=== PATIENT | female | born 1930 | race Hispanic/Latino ===

== ENCOUNTER 2019-11-16 18:07 | Inpatient (IN) | payer MEDICARE, MEDICAID ==
[~2019-11-16] VITALS: Ht 157.5 cm; Wt 59.2 kg
--- NOTE | 2019-11-16 18:26 | NUR ---
PT ARRIVED TO UNIT VIA WHEELCHAIR WITH STAFF AND DAUGHTER; ALERT AND ORIENTED X 2; [place] SPEAKING ONLY. STABLE CONDITION. PT STOOD AND SAT ON BED INDEPENDENTLY. DENIES PAIN. RESPIRATIONS EVEN AND UNLABORED ON ROOM AIR. CONNECTED TO ATTACHMENTS. ASSESSMENT COMPLETED. ORIENTED TO ROOM AND CALL LIGHT SYSTEM. IV SITE STARTED TO LAC AND LABS OBTAINED. PLAN OF CARE DISCUSSED. PT ENCOURAGED TO VERBALIZE CONCERNS. STATES UNDERSTANDING. SAFETY MEASURES IN PLACE. CALL LIGHT WITHIN REACH.
--- NOTE | 2019-11-16 19:05 | NUR ---
RADIOLOGY AT BEDSIDE FOR CXR.
[2019-11-16] MEDS ORDERED: SYMBICORT1 AE1 IN (19:07)
[2019-11-16] MEDS ORDERED: METFORMIN HCL500 M1 PO (19:07)
[2019-11-16] MEDS ORDERED: LEVOTHYROXIN150 MC1 PO (19:07)
[2019-11-16] MEDS ORDERED: LOSARTAN POTAS100 MG PO (19:08)
[2019-11-16 19:14] LABS: HEMATOCRIT 31.6 % (37.0-47.0); HEMOGLOBIN 10.1 g/dl (12.0-16.0); IMMATURE GRANULOCYTES 1.9 % (0.0-5.0); MEAN CELL VOLUME 103.6 fL CALC (80.0-100.0); MEAN CORPUSCULAR HGB 33.1 pG CALC (26.0-32.0); NEUT# 8.2 thou/uL (2.00-7.15); RED BLOOD COUNT 3.05 mill/uL (4.20-5.60); RED CELL DISTRI WIDTH 13.2 % (11.5-15.5)
[2019-11-16] MEDS ORDERED: LATANOPROST0.005 % OU (19:14)
[2019-11-16] MEDS ORDERED: CEPHALEXIN500 MG PO (19:15)
[2019-11-16] MEDS ORDERED: PROAIR HFA108 MCG/AC IN (19:15)
[2019-11-16] MEDS ORDERED: LASIX 40 MG TAB40 MG PO (19:15)
[2019-11-16] MEDS ORDERED: PRAVASTATIN SOD20 MG PO (19:16)
[2019-11-16] MEDS ORDERED: VITAMIN B-12500 MCG PO (19:16)
[2019-11-16] MEDS ORDERED: TESSALON PER100 MG PO (19:17)
--- NOTE | 2019-11-16 19:25 | NUR ---
rt @ bedside. ekg obtained.
[2019-11-16 19:27] LABS: ALBUMIN 3.9 g/dL (3.2-5.0); BILIRUBIN, TOTAL 0.7 mg/dL (0.0-1.4); CREATININE 2.2 mg/dL (0.5-1.0); POTASSIUM 4.4 mmol/l (3.5-5.1); TOTAL PROTEIN 6.4 g/dL (6.3-8.2)
[2019-11-16 19:45] VITALS: BP 94/55
--- NOTE | 2019-11-16 19:45 | NUR ---
awake. rolf(gr celestina) @ bedside & translates for this adjusto writer operator. denies distress. cardiac exercise specialist shows sinus rhythm pacs pvcs hr 92. #20 lac saline lock. po fluids given. fall precautions cont.
--- NOTE | 2019-11-16 20:10 | NUR ---
rt notified of need for ekg.
--- NOTE | 2019-11-16 20:40 | NUR ---
up to bsc. voided. urine spec sent to lab. carmen well.
[2019-11-16 21:42] LABS: URINE BILIRUBIN - DIPSTICK NEGATIVE (NEGATIVE); URINE BLOOD DIPSTICK NEGATIVE (NEGATIVE); URINE COLOR YELLOW; URINE GLUCOSE - DIPSTICK NEGATIVE (NEGATIVE); URINE KETONE TRACE mg/dL (NEGATIVE); URINE LEUK ESTERASE TRACE (NEGATIVE); URINE NITRITE - DIPSTICK NEGATIVE (Negative); URINE PROTEIN - DIPSTICK NEGATIVE (NEG-TRACE); URINE SPECIFIC GRAVITY 1.025; URINE UROBILINOGEN - DIPSTICK 0.2 E.U./dL (0.2)
[2019-11-17] VITALS (7 sets, daily range): BP systolic 90–119; BP diastolic 51–60
--- NOTE | 2019-11-17 00:01 | NUR ---
eyes closed. no distress. cardic monitor shows sinus rhythm pacs pvcs hr 94.
--- NOTE | 2019-11-17 04:00 | NUR ---
eyes closed. no distress. traffic monitor specialist shows sinus rhythm hr 88.
[2019-11-17 06:11] LABS: CREATININE 1.6 mg/dL (0.5-1.0); POTASSIUM 4.7 mmol/l (3.5-5.1)
--- NOTE | 2019-11-17 07:20 | NUR ---
PT RESTING IN BED AWAKE. PT IS ALERT AND ORIENTED X3. SHIFT ASSESSMENT COMPLETED AT THIS TIME. IV PATENT X1. CALL LIGHT IN REACH. WILL CONTINUE TO MONITOR
--- NOTE | 2019-11-17 07:50 | NUR ---
DR CHRISTNIA AT BEDSIDE AT THIS TIME.
--- NOTE | 2019-11-17 07:50 | NUR ---
PT SET UP FOR AM MEAL
--- NOTE | 2019-11-17 10:04 | NUR ---
PT TO RADIOLOGY VIA WHEELCHAIR
--- NOTE | 2019-11-17 10:18 | NUR ---
PT RETURNED FROM RADIOLOGY VIA WHEELCHAIR IN STABLE CONDITION
--- NOTE | 2019-11-17 11:40 | NUR ---
PT SET UP FOR NOON MEAL.
--- NOTE | 2019-11-17 12:18 | NUR ---
PT RESTING IN BED AWAKE. MULTIPLE FAMILY MEMBERS AT BEDSIDE. RESP ARE EVEN AND UNLABORED. NO DISTRESS NOTED CALL LIGHT IN REACH. WILL CONTINUE TO MONITOR.
--- NOTE | 2019-11-17 13:48 | NUR ---
REPORT TO Santa MIMS LPN.
--- NOTE | 2019-11-17 14:03 | NUR ---
[facility] ROOM 261 VIA WHEELCHAIR.
--- NOTE | 2019-11-17 14:10 | NUR ---
PT TRANSFERRED FROM ICU VIA [facility] STAFF AND BELONGINGS FAMILY ACCOMPANIED PT.
--- NOTE | 2019-11-17 16:01 | NUR ---
PT C/O COUGHING FAMILY INQUIRED ABOUT COUGH MEDICATIONS. INQUIRED WITH ARMAND MEMBRENO WILL ORDER SOMETHING.
--- NOTE | 2019-11-17 19:18 | NUR ---
REPORT GIVEN BY ANDI SHEFFIELD. PATIENT IN BED WITH DAUGHTER PRESENT AT THE BEDSIDE. RESP EVEN AND UNLABORED. NO S/S OF DISTRESS NOTED. IV INFUSING NS. PLAN OF CARE DISCUSSED. PATIENT INFORMED TO CALL WITH ANY QUESTIONS OR CONCERNS. FALL PRECAUTIONS IN PLACE.
--- NOTE | 2019-11-17 20:16 | NUR ---
DAUGHTER GIVEN A COT TO SLEEP ON IN THE ROOM. PATIENT REQUESTED BEDTIME MEDICATIONS EARLY.
--- NOTE | 2019-11-18 00:03 | NUR ---
PATIENT RESTING WITH EYES CLOSED. RESP EVEN AND UNLABORED. NO S/S OF DISTRESS NOTED. DAUGHTER PRESENT AT THE BEDSIDE.
[2019-11-18 03:43] VITALS: BP 102/57
--- NOTE | 2019-11-18 03:55 | NUR ---
PATIENT RESTING WITH EYES CLOSED. RESP EVEN AND UULABORED. NO S/S OF DISTRESS NOTED.
[2019-11-18 05:34] LABS: HEMATOCRIT 26.6 % (37.0-47.0); HEMOGLOBIN 8.4 g/dl (12.0-16.0); MEAN CELL VOLUME 107.3 fL CALC (80.0-100.0); MEAN CORPUSCULAR HGB 33.9 pG CALC (26.0-32.0); MEAN CORPUSCULAR HGB CONC 31.6 g/L CALC (32.0-36.0); RED BLOOD COUNT 2.48 mill/uL (4.20-5.60); RED CELL DISTRI WIDTH 13.1 % (11.5-15.5)
[2019-11-18 06:00] LABS: CREATININE 1.1 mg/dL (0.5-1.0); MAGNESIUM 2.1 mg/dL (1.6-2.3); POTASSIUM 4.5 mmol/l (3.5-5.1)
--- NOTE | 2019-11-18 07:09 | NUR ---
SHIFT CHANGE REPORT, PT AWAKE AND ALERT, COUGHING, IVF INFUSING, TELE MONITOR IN PLACE. DAUGHTER AT BEDSIDE INQUIRING WHY PT ISNT GETTING ALL HER MEDICATIONS, ADVISED WILL ADDRESS CONCERNS WHEN MD ARRIVES, SATISFIED WITH RESPONSE, NURSE WILL CONTINUE TO MONITOR.
[2019-11-18 08:39] VITALS: BP 118/63
[2019-11-18 11:12] VITALS: BP 100/57
--- NOTE | 2019-11-18 12:00 | NUR ---
NORBERTO IN BED WITH FAMILY AROUND, REPORTS SHE HAS BEEN HAVING OCCASIONAL PALPITATIONS SINCE SHE RECEIVED IV STEROIDS THIS AM, ADVISED CONDITION MAY BE DUE TO SIDE EFFECTS OF BREATHIG TREATMENTS AND STEROIDS, ADVISED TO REPORT EPISODES THEY OCCUR, WILL CONTINUE TO MONITOR.
[2019-11-18 15:50] VITALS: BP 124/75
--- NOTE | 2019-11-18 16:39 | NUR ---
TELE ELIGIBILITY MANAGER NOTIFIED OF RATE IN 130'S, ON ASSESSMENT PT FOUND JUST AMBULATING FORM BR, SETTLED IN BED, RATE NOW DOWN TO 96 BPM REPORTED BY ELIGIBILITY MANAGER.
[2019-11-18 18:20] VITALS: BP 121/68
--- NOTE | 2019-11-18 19:48 | NUR ---
PT RESTING IN BED NO SIGNS OF DISTRESS, VISITOR AT BEDSIDE. PT ALERT AND ORIENTED X3. [place] SPEAKING ONLY, SAS SQL DEVELOPER SPEAKS [place]. DISCUSSED POC. PT HAS A PRODUCTIVE COUGH. BRUISING NOTED TO L KNEE. ASSESSMENT COMPLETED. CALL LIGHT IN REACH,CONTINUE TO MONITOR.
--- NOTE | 2019-11-18 21:00 | NUR ---
PT SITTING ON SIDE OF BED, VISITOR AT BEDSIDE, NO SIGNS OF DISTRESS NOTED, RESP EVEN AND UNLABORED. IS BROUGHT TO PT; EDUCATED ON IT'S USE, PT DEMONSTRATED, VOLUME 500. SET GOAL AT 1000 ENCOURAGED PT TO USE 10X EVERY HR WHILE AWAKE, VERBALIZED UNDERSTANDING. DISCUSSED MEDICATIONS, PT REFUSED SOLUMEDROL. PT STATES SHE DOES NOT LIKE HOW IT MAKES HER FEEL. CALL LIGHT IN REACH,CONTINUE TO MONITOR.
--- NOTE | 2019-11-18 23:25 | NUR ---
PT RESTING IN BED, VOICES NO NEEDS OR COMPLAINTS AT THIS TIME. CALL LIGHT IN REACH,CONTINUE TO MONITOR.
[2019-11-18 23:38] VITALS: BP 113/63
[2019-11-19 03:33] VITALS: BP 116/66
--- NOTE | 2019-11-19 04:35 | NUR ---
PT RESTING IN BED, NO SIGNS OF DISTRESS NOTED, RESP EVEN AND UNLABORED. CALL LIGHT IN REACH,CONTINUE TO MONITOR.
[2019-11-19 05:54] LABS: HEMATOCRIT 26.6 % (37.0-47.0); HEMOGLOBIN 8.3 g/dl (12.0-16.0); MEAN CELL VOLUME 105.6 fL CALC (80.0-100.0); MEAN CORPUSCULAR HGB 32.9 pG CALC (26.0-32.0); MEAN CORPUSCULAR HGB CONC 31.2 g/L CALC (32.0-36.0); RED BLOOD COUNT 2.52 mill/uL (4.20-5.60)
[2019-11-19 06:16] LABS: ANION GAP 9 (6-22 (CALC)); BUN 26 mg/dL (8-23); BUN/CREATININE RATIO 27 (12-20 (CALC)); CARBON DIOXIDE 20 mmol/l (22-30); CHLORIDE 116 mmol/l (95-108); CREATININE 0.9 mg/dL (0.5-1.0); GFR 59 ML/MIN (>=60 (CALC)); GFR FOR AFR.AMER. > 60 ML/MIN (>=60 (CALC)); POTASSIUM 4.7 mmol/l (3.5-5.1); SODIUM 140 mmol/l (137-146)
--- NOTE | 2019-11-19 07:00 | NUR ---
REPORT RECEIVED FROM NETTIE SOUSA. PT RESTING IN BED ALERT AND ORIENTED WITH DAUGHTER AT BEDSIDE. DENIES PAIN. RESPIRATIONS EVEN AND UNLABORED ON ROOM AIR. PLAN OF CARE REVIEWED. PT ENCOURAGED TO VERBALIZE CONCERNS. STATES UNDERSTANDING. SAFETY MEASURES IN PLACE. CALL LIGHT WITHIN REACH.
[2019-11-19 08:00] VITALS: BP 127/71
--- NOTE | 2019-11-19 10:52 | NUR ---
DR. CHRISTINA AT BEDSIDE. DAGOBERTO ALSO REMAINS AT BEDSIDE. NO REQUESTS OR CONCERNS AT THIS TIME. CALL LIGHT WITHIN REACH.
[2019-11-19] MEDS ORDERED: MEDDOSEPAK PO (10:55)
[2019-11-19] MEDS ORDERED: BIOTUSSIN PO (10:59)
[2019-11-19] MEDS ORDERED: AMLODIPINE BES2.5 MG PO (10:59)
[2019-11-19 11:48] VITALS: BP 148/74
--- NOTE | 2019-11-19 12:41 | NUR ---
IV site discontinued, cath intact. No edema , no redness, voices no discomfort.
--- NOTE | 2019-11-19 12:49 | NUR ---
Discharge instructions given. Patient verbalizes understanding of same. Discharged in stable condition via Wheelchair to HOME WITH HOME HEALTH with family. All belongings sent with pt.
== END 2019-11-19 12:57 | disposition home health service (06) | DRG 683 ==
LOC: ICU 18:07 → MS2 18:07
PROVIDERS: ADMIT Internal Medicine; ATTEND Internal Medicine
DX: N17.9 Acute kidney failure, unspecified (principal); J44.1 Chronic obstructive pulmonary disease with (acute) exacerbation; E86.0 Dehydration; D17.0 Benign lipomatous neoplasm of skin and subcutaneous tissue of head, face and neck; E11.9 Type 2 diabetes mellitus without complications; I10 Essential (primary) hypertension; I95.9 Hypotension, unspecified; E03.9 Hypothyroidism, unspecified; D64.9 Anemia, unspecified; T50.1X5A Adverse effect of loop [high-ceiling] diuretics, initial encounter; T46.5X5A Adverse effect of other antihypertensive drugs, initial encounter; E78.5 Hyperlipidemia, unspecified; Z87.891 Personal history of nicotine dependence; Z79.84 Long term (current) use of oral hypoglycemic drugs

== ENCOUNTER 2020-01-29 15:40 | Inpatient (IN) | payer MEDICARE, MEDICAID ==
[~2020-01-29] VITALS: Ht 157.5 cm; Wt 56.8 kg
[~2020-01-29 15:40] MED LIST: AMLODIPINE BES2.5 MG PO; BIOTUSSIN PO; CEPHALEXIN500 MG PO; LASIX 40 MG TAB40 MG PO; LATANOPROST0.005 % OU; LEVOTHYROXIN150 MC1 PO; LOSARTAN POTAS100 MG PO; MEDDOSEPAK PO; METFORMIN HCL500 M1 PO; PRAVASTATIN SOD20 MG PO; PROAIR HFA108 MCG/AC IN; SYMBICORT1 AE1 IN; TESSALON PER100 MG PO; VITAMIN B-12500 MCG PO
--- NOTE | 2020-01-29 15:40 | NUR ---
PT ARRIVED TO UNIT VIA STRETCHER WITH MEDICAL TRANSPORT FROM [facility] ER; ASSISTED FROM STRETCHER TO BED WITH 3 PERSON ASSIST. PT ALERT; VERBAL WITH SOME SLURRED SPEECH; [place] SPEAKING ONLY. RIGHT SIDE FLACCID. DENIES PAIN. RESPIRATIONS EVEN AND UNLABORED ON OXYGEN 2L VIA NC; AUDIBLE WHEEZING; AUSCULTATED WHEEZING ANTERIORLY; CLEAR POSTERIOR. HEART RATE IRREGULAR. ABDOMEN DISTENDED AND SOFT WITH HYPOACTIVE BS. MENENDEZ DRAINING CLEAR YELLOW URINE IN ADEQUATE AMOUNTS; SECURED TO RIGHT THIGH. SKIN TEAR NOTED TO RIGHT HOPKINS WITH DRESSING; DRESSING REMOVED, SKIN TEAR APPROXIMATED AND STERI STRIPS APPLIED; TELFA AND KERLEX ALSO APPLIED FOR BLOODY DRAINAGE; HEMATOMA DISTAL TO SKIN TEAR PADDED WITH 2X2S FOR PROTECTION AND ALSO WRAPPED IN KERLEX. 2+ PITTING EDEMA TO RIGHT FOOT; TRACE EDEMA TO RUE. RIGHT SIDE FLACCID R/T RECENT CVA; LEFT SIDE FOLLOWS COMMANDS. ORIENTED TO ROOM AND CALL LIGHT SYSTEM. SCD APPLIED TO LLE. SAFETY MEASURES IN PLACE. CALL LIGHT WITHIN REACH.
[2020-01-29 16:00] VITALS: BP 149/91
--- NOTE | 2020-01-29 17:07 | NUR ---
GRANDDAUGHTER, ROJAS, CALLED FOR UPDATE. NOTIFIED OF ROOM NUMBER AND PT CONDITION.
--- NOTE | 2020-01-29 17:17 | NUR ---
RT AT BEDSIDE FOR EKG; FEMALE KOREAN SPEAKING NURSE ALSO AT BEDSIDE FOR INTERPRETATION.
--- NOTE | 2020-01-29 18:16 | NUR ---
OBTAINED MEDICAL HISTORY FROM GRANDDAUGHTER ROJAS. PT IS ALERT AND ORIENTED TO NAME; DOES COMPREHEND AND FOLLOW COMMANDS, HOWEVER, IS EXPERIENCING EXPRESSIVE APHASIA AND IS NONVERBAL. SHAKES HEAD FOR YES OR NO QUESTIONS. PER FAMILY PT HAS BEEN A TOTAL ASSIST AT HOME AND BEDFAST. INCONTIENT OF BOWEL AND BLADDER; USING BRIEFS. SINCE DISCHARGE FROM [facility] SHE HAS HAD [facility] CHO[facility] HOME HEALTH SEEING HER DAILY ALONG WITH PT AND OT.
[2020-01-29] MEDS ORDERED: ASPIRIN 81 LOW81 MG PO (18:35)
[2020-01-29 20:00] VITALS: BP 136/87
--- NOTE | 2020-01-29 21:30 | NUR ---
ASSESSMENT COMPLETED. PT. WITH EXPRESSIVE APHASIA, BUT IS ABLE TO NOD YES OR NO TO QUESTIONS AND FOLLOW COMMANDS; RIGHT SIDE FLACCID R/T HX OF STROKE. MEDICATED WITH SCHED MEDS ALONG WITH PRN RESTORIL TO ASSIST WITH SLEEP. MENENDEZ CATHETER INTACT AND DRAINING AT GRAVITY LEVEL. IV SITE PATENT TO LAC AND SL, FLUSHES WELL. RIGHT HAND AND FOOT WITH SWELLING AND ELEVATED ONTO PILLOW. DRESSING IS CDI TO RIGHT HOPKINS. REPOSITIONED AT THIS TIME ONTO LEFT SIDE WITH NO INCONTINENCE OF BM NOTED. WILL CONTINUE TO MONITOR. SNACK PROVIDED. CALL LIGHT IS IN REACH.
[2020-01-30] VITALS (7 sets, daily range): BP systolic 132–153; BP diastolic 79–92
--- NOTE | 2020-01-30 00:30 | NUR ---
PT. SLEEPING WITH NO DISTRESS NOTED; NEW IV STARTED TO RAC X2 ATTEMPTS AND EMS SITE REMOVED WITH CATHETER TIP INTACT. CALL LIGHT IS IN REACH. WILL CONTINUE TO MONITOR.
--- NOTE | 2020-01-30 03:15 | NUR ---
RESTING IN BED WITH EYES CLOSED; RESP. EVEN AND UNLABORED. CALL LIGHT IS IN REACH.
[2020-01-30 04:59] LABS: IMMATURE GRANULOCYTES 3.1 % (0.0-5.0); MEAN CORPUSCULAR HGB 30.6 pG CALC (26.0-32.0); MEAN CORPUSCULAR HGB CONC 31.8 g/dL CAL (32.0-36.0); NEUT# 16.9 thou/uL (2.00-7.15); RED BLOOD COUNT 3.5 mill/uL (4.20-5.60); RED CELL DISTRI WIDTH 14.8 % (11.5-15.5)
[2020-01-30 05:04] LABS: HEMATOCRIT 33.7 % (37.0-47.0); HEMOGLOBIN 10.7 g/dl (12.0-16.0); MEAN CELL VOLUME 96.3 fL CALC (80.0-100.0)
[2020-01-30 05:13] LABS: ALBUMIN 3.4 g/dL (3.2-5.0); ANION GAP 13 (6-22 (CALC)); BILIRUBIN, TOTAL 0.6 mg/dL (0.0-1.4); BUN 16 mg/dL (8-23); BUN/CREATININE RATIO 17 (12-20 (CALC)); CARBON DIOXIDE 22 mmol/l (22-30); CHLORIDE 103 mmol/l (95-108); CREATININE 0.9 mg/dL (0.5-1.0); GFR 59 ML/MIN (>=60 (CALC)); GFR FOR AFR.AMER. > 60 ML/MIN (>=60 (CALC)); POTASSIUM 4.7 mmol/l (3.5-5.1); SGOT/AST 32 u/l (9-36); SODIUM 133 mmol/l (137-146); TOTAL PROTEIN 6.5 g/dL (6.3-8.2)
[2020-01-30 05:16] LABS: ALKALINE PHOSPHATASE 203 u/l (38-126)
--- NOTE | 2020-01-30 05:50 | NUR ---
PT. SITTING UP IN BED AND PROVIDED WITH MILK. DENIES FURTHER NEEDS. CALL LIGHT IS IN REACH.
--- NOTE | 2020-01-30 07:10 | NUR ---
REPORT RECEIVED FROM LISS BLAIR. PT RESTING IN BED ON LEFT SIDE; REPOSITIONED AND SAT UP FOR BREAKFAST. ALERT AND NON VERBAL. NO SIGNS OF PAIN. RESPIRATIONS EVEN AND UNLABORED ON OXYGEN 2L VIA NC; MOIST NON PRODUCTIVE COUGH. TELE ON. ACCU CHECK 190. MENENDEZ DRAINING CLEAR YELLOW URINE. SAFETY MEASURES IN PLACE. CALL LIGHT WITHIN REACH.
--- NOTE | 2020-01-30 09:22 | NUR ---
TURNED ONTO LEFT SIDE WITH PILLOWS. IV SITE APPEARS HEALTHY AND FLUSHES. REMAINS NON VERBAL.
--- NOTE | 2020-01-30 10:56 | NUR ---
PO MEDICATIONS GIVEN IN APPLE SAUCE WITH HOB AT 90 DEGREES; ASPIRATION PRECAUTIONS. SPEECH THERAPY ORDERED DUE TO DEFICITS FROM CVA. PT HAS DELAYED SWALLOWING; WITH WATER INTAKE SOME ESCAPES MOUTH AND PT COUGHS. TYSHAWN LOOSE COUGH. WILL CONTINUE TO MONITOR.
--- NOTE | 2020-01-30 11:45 | NUR ---
PT INDICATED NEED FOR BOWEL MOVEMENT; PLACED ON BEDPAIN WITH NO RESULTS.
--- NOTE | 2020-01-30 12:16 | NUR ---
DR. METZ AT BEDSIDE.
--- NOTE | 2020-01-30 13:35 | NUR ---
NECTAR THICKENED LIQUIDS ADDED TO DIET ORDER.
--- NOTE | 2020-01-30 15:42 | NUR ---
URINARY OUTPUT OF 150 ML SO FAR THIS SHIFT OF HAZY DARK YELLOW URINE. NO KINKS NOTED TO TUBING. BLADDER SCAN REPORTS ZERO ML OF RETAINED URINE IN BLADDER. PO HYDRATION ENCOURAGED. MD NOTIFIED OF INADEQUATE OUTPUT. ABDOMEN REMAINS DISTENDED AND SOFT WHEN PT IS RELAXED. PT IS USING ABDOMINAL MUSCLES DURING BREATHING; DURING INSPIRATION ABDOMEN BECOMES MORE DISTENDED AND FIRM; SOFT DURING EXHALE. WILL CONTINUE TO MONITOR.
--- NOTE | 2020-01-30 16:19 | NUR ---
CIRCUMFERENCE OF ABDOMEN MEASURED AT 38 INCHES AND MARKED. MILK OF MAG ADMINISTERED AT THIS TIME. PT ALERT AND COOPERATIVE.
--- NOTE | 2020-01-30 16:40 | NUR ---
CARROLL XIE CALLED AND UPDATED.
--- NOTE | 2020-01-30 17:05 | NUR ---
MOLD YARD CRANE OPERATOR NOTIFIED NURSE OF SUSTAINED SINUS TACH IN THE 130'S; PT IS AT REST; RESPIRATIONS EVEN AND SLIGHTLY LABORED AT 16 RPM; CONTINUES ON OXYGEN 2L VIA NC. SPO2 98%. BP 149/84. RT AT BEDSIDE FOR EKG. RADIAL PULSES ARE THREADY; STRONG PEDAL PULSES.
--- NOTE | 2020-01-30 18:32 | NUR ---
TROPONIN NEGATIVE. MD NOTIFIED OF SUSTAINED TACHYCARDIA, INADEQUATE URINARY OUTPUT, POOR ORAL INTAKE, AND ABDOMINAL DISTENTION. NEW ORDERS RECEIVED.
--- NOTE | 2020-01-30 19:36 | NUR ---
PT. REPOSITIONED INTO BED AND PUT INTO HIGH HAMMER POSITION. PT. MEDICATED WITH ORDERED LOPRESSOR AND BOLUS STARTED PER ORDER; B/P AND HR OBTAINED PRIOR TO ADMINISTRATION; SEE INTERVENTION. ASSESSMENT COMPLETED;RIGHT SIDE FLACCID R/T HX STROKE. SCD IN PLACE TO LLE AND DRESSING IN PLACE TO RIGHT HOPKINS; CDI. PO FLUIDS OFFERED. CALL LIGHT IS IN REACH.
--- NOTE | 2020-01-30 21:01 | NUR ---
PT. IS SITTING UP IN BED AND SCHED MEDS GIVEN. XRAY OBTAINED BY Declara PER ORDER. PT. IS WITH EXPRESSIVE APHASIA AND ABLE TO NOD YES OR NO TO QUESTIONS AND DENIES NEEDS. CALL LIGHT IS IN REACH.
[2020-01-31] VITALS (7 sets, daily range): BP systolic 124–140; BP diastolic 67–81
--- NOTE | 2020-01-31 | NUR ---
REPOSITIONED ONTO RIGHT SIDE. NO DISTRESS NOTED. DENIES NEEDS. CALL LIGHT IS IN REACH,
--- NOTE | 2020-01-31 02:15 | NUR ---
RESTING IN BED WITH EYES CLOSED; RESP. EVEN AND UNLABORED.
--- NOTE | 2020-01-31 05:11 | NUR ---
PT. WAS CLEANED OF AN INCONTINENCE OF BM. SCHED MEDS GIVEN. VSS. NO DISTRESS NOTED.
--- NOTE | 2020-01-31 06:05 | NUR ---
NEW IV STARTED TO LEFT WRIST AND ORDERED IVF MOVED TO THIS SITE.
--- NOTE | 2020-01-31 08:17 | NUR ---
SPEECH THERAPY AT BEDSIDE WITH MIREYA LEMOS.
--- NOTE | 2020-01-31 08:46 | NUR ---
SPEECH EVAL REPORTS THAT PT CANNOT SWALLOW FOOD OR FLUIDS SAFELY AT THIS TIME DUE TO PROBABLE ASPIRATION. PT DIET CHANGED TO NPO FOR NOW.
--- NOTE | 2020-01-31 10:16 | NUR ---
PT AT BEDSIDE FOR EVAL. MODIFIED BARIUM SWALLOW SCHEDULED FOR TODAY.
--- NOTE | 2020-01-31 10:29 | NUR ---
GRANDDAUGHTER CALLED AND UPDATED VIA TELEPHONE.
--- NOTE | 2020-01-31 10:56 | NUR ---
PT ASSISTED TO CHAIR WITH PHYSICAL THERAPY.
--- NOTE | 2020-01-31 11:17 | NUR ---
PT AND ST AT BEDSIDE WITH PRIVACY DIRECTOR TO EXPLAIN AND TRANSPORT PT VIA WHEELCHAIR FOR MBS.
--- NOTE | 2020-01-31 11:49 | NUR ---
PT BACK TO UNIT; TRANSFERRED FROM WHEELCHAIR TO BED WITH ASSIST FROM PT.
--- NOTE | 2020-01-31 12:42 | NUR ---
DR. CHRISTINA AT BEDSIDE FOR EVAL.
--- NOTE | 2020-01-31 14:00 | NUR ---
DIET RESTARTED; PUREE DIABETIC WITH HONEY THICKENED LIQUIDS. FAMILY CALLED FOR UPDATE; INFORMED OF SWALLOW STUDY RESULTS. PT NOW RESTING SEMI FOWLERS WITH NO SIGNS OF DISTRESS. IV FLUIDS INFUSING WITHOUT DIFFICULTY; IV SITE APPEARS HEALTHY. MINIMAL OUTPUT FROM MENENDEZ.
--- NOTE | 2020-01-31 17:00 | NUR ---
TURNED AND REPOSITIONED WITH PILLOWS. SAFETY MEASURES IN PLACE. CALL LIGHT WITHIN REACH.
--- NOTE | 2020-01-31 19:50 | NUR ---
PT ASSESSMENT COMPLETED AND IV ANTIBIOTIC THERAPY ADMINISTERED AT THIS TIME. NO S/O DISTRESS, PT WAS SLEEPING, BUT AWOKE TO MY VOICE. MENENDEZ CATH DRAINING TO GRAVITY DARK YELLOW CLEAR URINE.
--- NOTE | 2020-01-31 22:18 | NUR ---
pt medicated as orders provide. no s/o distress noted. call light w/in reach.
--- NOTE | 2020-02-01 02:24 | NUR ---
pt sleeping, repositioned for pressure management. feet elevated on pillows w/heel protectors in place. no s/o distress noted.
[2020-02-01 04:05] VITALS: BP 131/72
--- NOTE | 2020-02-01 05:23 | NUR ---
PT MEDICATED ORDERS PROVIDE W/THICKENED PO FLUID. PT HAS RECENTLY BEEN REPOSITIONED BY AIDES. NO S/O DISTRESS NOTED.
[2020-02-01 05:36] LABS: HEMATOCRIT 32.4 % (37.0-47.0); HEMOGLOBIN 10.1 g/dl (12.0-16.0); MEAN CELL VOLUME 99.4 fL CALC (80.0-100.0); MEAN CORPUSCULAR HGB CONC 31.2 g/dL CAL (32.0-36.0); RED BLOOD COUNT 3.26 mill/uL (4.20-5.60); RED CELL DISTRI WIDTH 15.1 % (11.5-15.5)
[2020-02-01 05:51] LABS: ALKALINE PHOSPHATASE 213 u/l (38-126); ANION GAP 10 (6-22 (CALC)); BILIRUBIN, TOTAL 0.4 mg/dL (0.0-1.4); BUN 29 mg/dL (8-23); BUN/CREATININE RATIO 30 (12-20 (CALC)); CARBON DIOXIDE 22 mmol/l (22-30); CHLORIDE 110 mmol/l (95-108); GFR 52 ML/MIN (>=60 (CALC)); GFR FOR AFR.AMER. > 60 ML/MIN (>=60 (CALC)); POTASSIUM 4.9 mmol/l (3.5-5.1); SGOT/AST 31 u/l (9-36); SODIUM 137 mmol/l (137-146); TOTAL PROTEIN 5.8 g/dL (6.3-8.2)
[2020-02-01 07:36] VITALS: BP 140/78
--- NOTE | 2020-02-01 08:00 | NUR ---
SHIFT CHANGE REPORT, PT IN BED IN SEMI FOWLERS POSITION, RESPONDS WITH BODY LANGUAGE TO VERBAL AND TACTILE STIMULI, NO VISIBLE SIGN DISCOMFORT, TELE MONITOR IN PLACE, MENENDEZ IN PLACE WITH CLEAR LIGT SHANIA URINE, BED IN LOWEST POSITION AND CALL IRBY IN REACH.
--- NOTE | 2020-02-01 09:34 | NUR ---
Pt. found resting with head elevated, O2 via NC in place. She is awaken with tactile cues. Treatment plan for ROM and transfer training explained, translation by Silvia Alvarado. Pt. instructed on AAROM LLE of which she is able to initiate movements, however required min. assist for increased ROM (L hip and knee flexion, hip abduction). PROM to RLE also performed (R hip and knee flexion, hip abduction). Pt. unable to isolate L ankle PF/DF and was performed passively to bilateral ankles. Transfer training consisted of bed mobility skills with verbal and tactile cues for L hand placement on bed railing to assist. She is able to advance LLE with min. assist and required max assist to advance RLE to edge of bed. Once sitting pt. used L hand to hold onto railing for stability, therapist provided mod. assist to upper trunk as well. This was maintained 2 mins. and was followed by max transfer back to bed with head elevated and pillows for offloading. Pt. left resting comfortably, call light and bedside table within reach. AMPAC score unchanged:8.
--- NOTE | 2020-02-01 11:04 | NUR ---
JUST SPOKE TO MAREK IN SPEECH THERAPY WHO ADVISED ME PT NEEDS TO BE ON PUREED DIET WITH HONEY THICKENED LIQUIDS AND SHE WILL BE HERE IN MINUTES TO SPEAK WITH MD.
[2020-02-01 11:40] VITALS: BP 129/58
--- NOTE | 2020-02-01 11:45 | NUR ---
MAREK FROM SPEECH THERAPY ROUDED, GAVE WRITTEN AND VERBAL INSTRUCTIONS ON HOW TO FEED SAFELY, PT TOLERATED MEAL WELL AND INDICATED APPROPRIATELY WHEN SHE HAD SUFFICIENT AMOUNT, TOLERATED INTERVENTION WELL.
--- NOTE | 2020-02-01 13:24 | NUR ---
MOTION PICTURE PHOTOGRAPHER demonstrated and explained how to feed patient to one of the caregivers. All nursing staff was informed that this patient needs one on one feeding. Instructions were printed and given to be used and read daily at patient's bedside. MOTION PICTURE PHOTOGRAPHER spoke with kitchen director to explain diet as well. MOTION PICTURE PHOTOGRAPHER fed patient for 20 minutes using strategies provided and then EXPANDER MACHINE OPERATOR took over. Patient was very cooperative and eating and drinking the prescribed consistencies very well.
[2020-02-01 15:03] VITALS: BP 121/69
--- NOTE | 2020-02-01 16:54 | NUR ---
RESTING IN BED, FOLLOWS COMMANDS, ALL NEEDS ADDRESSED, CALL IRBY IN REACH
--- NOTE | 2020-02-01 16:58 | NUR ---
OLD DRESSING TO SKIN TEAR ON R. LOWER LEG REMOVED, STERI STRIPS IN PLACE, NO DRAINAGE, NEW TELFA DRESSING REPLACED AND SECURED WITH KERLIX BANDAGE.
[2020-02-01 17:04] LABS: URINE BILIRUBIN - DIPSTICK NEGATIVE (NEGATIVE); URINE BLOOD DIPSTICK SMALL (NEGATIVE); URINE CLARITY CLEAR; URINE COLOR YELLOW; URINE GLUCOSE - DIPSTICK NEGATIVE (NEGATIVE); URINE KETONE 15 mg/dL (NEGATIVE); URINE LEUK ESTERASE NEGATIVE (Negative); URINE NITRITE - DIPSTICK NEGATIVE (Negative); URINE PROTEIN - DIPSTICK TRACE mg/dL (NEG-TRACE); URINE UROBILINOGEN - DIPSTICK 0.2 E.U./dL (0.2)
[2020-02-01 18:27] VITALS: BP 136/77
--- NOTE | 2020-02-01 21:28 | NUR ---
PT REPOSITIONED AND MEDICATED ORDERS PROVIDE. PT RECEIVED PILLS CRUSHED AND ADMINISTERED W/HONEY THICKENED WATER AND 3 BITES OF YOGURT. PT LEFT SITTING UPRIGHT/PER REQUEST. PT APPEARED TO UNDERSTAND WHAT FILM PROCESS OPERATOR/PUBLIC RELATIONS MANAGER WAS SAYING AND EXPRESS HER NEEDS THROUGH ARM GESTURES AND TRYING TO SIT UP. PT TURNED HEAD SHARPLY WHEN FINISHED EATING.
--- NOTE | 2020-02-01 22:50 | NUR ---
PT REPOSITIONED FOR COMFORT. NO S/O DISTRESS NOTE.D
[2020-02-01 23:41] VITALS: BP 136/79
[2020-02-02 04:49] VITALS: BP 126/58
[2020-02-02 05:05] LABS: HEMATOCRIT 32.9 % (37.0-47.0); HEMOGLOBIN 10.1 g/dl (12.0-16.0); MEAN CELL VOLUME 98.2 fL CALC (80.0-100.0); MEAN CORPUSCULAR HGB 30.1 pG CALC (26.0-32.0); MEAN CORPUSCULAR HGB CONC 30.7 g/dL CAL (32.0-36.0); RED BLOOD COUNT 3.35 mill/uL (4.20-5.60); RED CELL DISTRI WIDTH 14.8 % (11.5-15.5)
[2020-02-02 05:23] LABS: ALBUMIN 3.1 g/dL (3.2-5.0); ALKALINE PHOSPHATASE 252 u/l (38-126); ANION GAP 8 (6-22 (CALC)); BILIRUBIN, TOTAL 0.5 mg/dL (0.0-1.4); BUN 34 mg/dL (8-23); BUN/CREATININE RATIO 37 (12-20 (CALC)); CARBON DIOXIDE 22 mmol/l (22-30); CHLORIDE 112 mmol/l (95-108); CREATININE 0.9 mg/dL (0.5-1.0); GFR 59 ML/MIN (>=60 (CALC)); GFR FOR AFR.AMER. > 60 ML/MIN (>=60 (CALC)); POTASSIUM 5.1 mmol/l (3.5-5.1); SGOT/AST 46 u/l (9-36); SODIUM 137 mmol/l (137-146); TOTAL PROTEIN 5.8 g/dL (6.3-8.2)
--- NOTE | 2020-02-02 07:49 | NUR ---
SHIFT CHANGE REPORT, PT AWAKE AND ALERT IN HIGH FOWLERS POSITION, NO SIGN DISCOMFORT,O2 @ 2L VIS NC IN PLACE, TELE MONITOR IN PLACE, IVF INFUSING TO SITE IN LEFT WRIST, MENENDEZ IN PLACE DRAINING CLEAR YELLOW URINE, BED IN LOWEST POSITION AND CALL IRBY IN REACH.
[2020-02-02 09:11] VITALS: BP 138/83
[2020-02-02] MEDS ORDERED: MEDDOSEPAK PO (11:12)
--- NOTE | 2020-02-02 11:18 | NUR ---
ALERT, RESTING IN BED, COMPRENENDS AND COOPERATIVE TO CARE.
--- NOTE | 2020-02-02 12:00 | NUR ---
APPETITE REMAINS POOR, FED BY MANAGER MSW INSTRUCTED BY SPEECH THERAPIST.
[2020-02-02 12:01] VITALS: BP 148/81
--- NOTE | 2020-02-02 14:22 | NUR ---
GRAND-DAUGHTER EMY CALLED TO INQUIRE ABOUT PT, I INFORMED HER PT WILL BE TRANSFERRED TO [facility] AND REPORTED BY HERMANN RAMIREZ. I HAD SKED ASHLEY EARLIER IF HE HAD INFORMED THE FAMILY OF THE PLAN AND HE TOLD ME YES HE DID. I ASSUMED HE SPOKE TO THE DAUGHTER WHO IS LISTED IN CHART SINCE EMY SAID SHE HEARD NOTHING FROM ASHLEY. EMY IS CALLING BACK NOT STATING NO FAMILY WAS INFORMED OF PLANS, I CONTACTED ASHLEY WHO TOLD ME HE HD SPOKEN TO EMY. I ADVISED EMY TO CALL BACK
--- NOTE | 2020-02-02 14:59 | NUR ---
REPORT CALLED TO JOHN ALMEIDA) AT [facility], NO TIME SET OF NOT FOR DEPARTURE OF PT.
--- NOTE | 2020-02-02 16:10 | NUR ---
RESTING COMFORTABLY IN BED AWAITING TRANSPORTATION TO REHAB
--- NOTE | 2020-02-02 16:49 | NUR ---
Discharge instructions given. Patient verbalizes understanding of same. Discharged in stable condition via Medical Transport to [facility] with *Other. All belongings sent with pt. MEDICAL TRANSPORTERS RECEIVED PT, LEFT VIA STRETCHER.
--- NOTE | 2020-02-02 16:53 | NUR ---
TELE MONITOR REMOVED AND RETURNED TO NURSING STATION
== END 2020-02-02 16:33 | DRG 191 ==
LOC: MS2 15:40
PROVIDERS: Nurse Practitioner Family; ADMIT Internal Medicine; ATTEND Internal Medicine
PROC: 0T9B70Z Drainage of Bladder with Drainage Device, Via Natural or Artificial Opening (ICD-10-PCS; principal; 2020-01-29)
DX: J43.9 Emphysema, unspecified (principal); I69.951 Hemiplegia and hemiparesis following unspecified cerebrovascular disease affecting right dominant side; I12.9 Hypertensive chronic kidney disease with stage 1 through stage 4 chronic kidney disease, or unspecified chronic kidney disease; E11.22 Type 2 diabetes mellitus with diabetic chronic kidney disease; N18.3 Chronic kidney disease, stage 3 (moderate); E11.51 Type 2 diabetes mellitus with diabetic peripheral angiopathy without gangrene; E78.5 Hyperlipidemia, unspecified; E03.9 Hypothyroidism, unspecified; I69.920 Aphasia following unspecified cerebrovascular disease; I69.991 Dysphagia following unspecified cerebrovascular disease; R13.12 Dysphagia, oropharyngeal phase; I08.0 Rheumatic disorders of both mitral and aortic valves; S81.801A Unspecified open wound, right lower leg, initial encounter; X58.XXXA Exposure to other specified factors, initial encounter; Z87.891 Personal history of nicotine dependence; Z79.84 Long term (current) use of oral hypoglycemic drugs; Z20.828 Contact with and (suspected) exposure to other viral communicable diseases